=== PATIENT | female | born 1960 | race Caucasian/White ===

== ENCOUNTER 2018-02-15 11:01 | Observation (INO) | payer OTHER ==
[2018-02-15] MEDS ORDERED: Diazepam TAB(*) 5 MG PO ONE (11:35)
[2018-02-15] MEDS ORDERED: NS 0.9% 1000 ML* 1,000 ML IV SCH ×2 (11:45→13:30)
[2018-02-15] MEDS ORDERED: Diazepam TAB(*) 5 MG ONE (11:49)
[2018-02-15] MEDS ORDERED: Insulin LISPRO* 1 UNITS UNIT SUBCUT ONE ×2 (12:00→21:34)
[2018-02-15] MEDS ORDERED: Iodixanol* (CONTRAST) 320 MG/ML 100 ML SDV ONE (12:06)
[2018-02-15] MEDS ORDERED: Lidocaine 1% INJ* 10 MG/ML 30 ML SDV ONE (12:06)
[2018-02-15] MEDS ORDERED: Heparin 2 UNITS/ML IVPREMIX* 2,000 ML IV ONE (12:06)
[2018-02-15] MEDS ORDERED: fentaNYL* 50 MCG/ML 2 ML VIAL (100 MCG VIAL) ONE (12:08)
[2018-02-15] MEDS ORDERED: Heparin(*) 1000 UNIT/ML 10 ML VIAL CATH LAB IV ONE (12:09)
[2018-02-15] MEDS ORDERED: VERAPAMIL 2.5 MG/ML 2 ML VIAL ** 5 mg/2 ml ONE (12:09)
[2018-02-15] MEDS ORDERED: nitroGLYCERIN DRIP* 25,000 MCG/250 ML BTL ONE ×2 (12:09→13:32)
[2018-02-15] MEDS ORDERED: Midazolam* 1 MG/ML 10 ML VIAL (10 MG) ONE (12:10)
[2018-02-15] MEDS ORDERED: nitroGLYCERIN DRIP* 25,000 MCG/250 ML BTL IV ONE (15:00)
--- NOTE | 2018-02-15 15:02 | CATH ---
CC: Dr. Moe Bass; Kay Ellis MD* CARDIAC CATHETERIZATION REPORT: DATE OF PROCEDURE: 02/15/18. INDICATION FOR THE PROCEDURE: Patient with the known history of coronary artery disease, status post stenting of both the right coronary artery for a prior inferior WV and stenting the circumflex artery for critical stenosis, now with severe stage 4 angina pectoris including discomfort at rest with a high risk stress test with angina starting at a very low work load. The procedure was coronary arteriography, left heart catheterization, left ventriculography. APPROACH: Right radial artery. PRECARDIAC CATHETERIZATION LABORATORY RESULTS: Hemoglobin, hematocrit of 15.2 and 44 with a platelet count of 221,000. Glucose of 471. BUN of 22, creatinine of 1. Sodium 137, potassium 3.9, chloride 102, bicarb 27, calcium 95. MEDICATIONS GIVEN IN THE PERIPROCEDURE TIME PERIOD: 1. Valium 2.5 mg orally. 2. Versed 0.5 mg IV. EQUIPMENT UTILIZED: 1. Right radial artery sheath: 6-Anguillan Glidesheath. 2. Diagnostic coronary catheter: 5-Anguillan TIG 4 curve radial catheter. 3. Diagnostic guidewires: Included a 260 length Da Silva exchange length wire and a 145 length Wholey wire. 4. Left heart catheterization catheter: 5-Anguillan pigtail Performa radial. PROCEDURE: The patient was interviewed and examined in the holding area where the risks and benefits were explained. The right radial artery was assessed under ultrasound and found to be acceptable for an approach. She was brought into the cardiovascular laboratory and a formal time-out was performed. The patient was prepped and draped in sterile fashion and right radial artery area was anesthetized with 1% lidocaine and under ultrasound guidance, the right radial artery was entered and the Glidesheath was placed. Diagnostic coronary arteriography was performed followed by left heart catheterization and left ventriculography utilizing a total of 24 cc of Visipaque dye at a rate of 12 cc/ sec. The catheter was then pulled back across the aortic valve to recheck gradient. At the end of the case, the catheter and sheath was removed and hemostasis was obtained with a Vasc Band. The reverse Barbeau was found to be B with the Vasc Band in place. Total contrast used was 85 cc of Visipaque dye. Radiation exposure included 6.9 minutes of fluoro time. The air kerma radiation was 889 milligray. The DAP radiation was 5127 microgray/m2. RESULTS: HEMODYNAMIC DATA: Left heart catheterization - Central aortic pressure recorded at 153/82 with a mean of 114. Left ventricular pressure 160 over left ventricular end- diastolic pressure of 18. LEFT VENTRICULOGRAPHY: Performed in the ZHANG projection revealed moderate proximal to mid inferior wall hypokinesis with preservation of the anterior, apical, and distal inferior wall. Overall, EF estimated at 45% to 50%. There was no significant mitral regurgitation. CORONARY ARTERIOGRAPHY: A. Left coronary artery: 1. Left main - widely patent with no significant lesion. 2. Left anterior descending artery - the proximal portion of the left anterior descending artery had an abrupt caliber change of 50% to 55%. This continued throughout this segment and then became more significant after the first septal travel pt. In its worse view, the mid segment area appeared to have a 70% to 75% lesion. The first diagonal branch did not have any significant obstruction seen, but its takeoff was within the area that appeared to have the caliber change of 50%. 3. Circumflex artery - supplied a trifurcating marginal branch with no significant disease. Continuation of the circumflex supplied 1 bifurcating obtuse marginal branch which in its proximal portion appeared to have a 55% to 60% obstruction followed by the stented area and just at the end of the stent and just beyond it was a critical 95% lesion with JOY 3 flow noted. B. Right coronary artery - a dominant vessel supplying the PDA and multiple posterior left ventricular branches. The prior stented area involved the proximal to mid area. There was significant in-stent restenosis with a narrowing of as much as 80% seen in this segment. JOY 3 flow was noted within this vessel. The mid portion of the right coronary artery had mild 35% to 40% narrowing and after the artery turned on to the inferior surface of the heart was another narrowing of approximately 35% to 40% before the posterior descending artery. OVERALL ASSESSMENT: Evidence of significant triple vessel disease with most severely involving the obtuse marginal branch with evidence of in-stent restenosis to prior drug- eluting stents. Overall left ventricular function is only mildly reduced. All of these vessels appeared to be bypassable. These results were discussed with Dr. Bass who will be discussing the possibility of open heart surgery for this patient given triple vessel disease with a insulin-dependent patient with poor control in general of her risk factors with a question of nonadherence to drug therapy. Further discussions will be made with the patient with Dr. Bass. [id number]/[facility] #: [id number] [facility]
--- NOTE | 2018-02-15 15:59 | CONSULT ---
Subjective Date of Service: 02/15/18 Interval History: Admission date and consult date 02/15/2018 PMD: Dr. Kay Ellis Service: Hospitalist CC: Chest pain Reason for consult: Unstable angina HPI Alma Rosa Miller is a 58 year old woman I had met for the first time 2 days ago. She has had progressive anginal symptoms of chest khan radiating to left arm including multiple episodes at rest over the last 4-6 weeks relieved with SL NTG. She had a markedly abnormal stress EKG this AM with 8/10 angina at 30 seconds beginning of keely protocol. She had an angiogram with Dr. Felix earlier today showing 3VD including OM lesion, pRCA ISR of a dominant vessel and an obstructive mLAD lesion. Her LVEF was 45-50% by LV gram with inferior WMA from a prior HI. She is currently pain free on a nitroglycerine gtt. Both Dr. Felix and myself agreed she would be better served with bypass for revascularization. She was declined by both cardiac surgeon and mechanical spreader operator for transfer to her preferred place of preference for CABG at [facility] because her daughter lives [address] Bradley has accepted her at [facility] for CABG. She unfortunately was unable to tolerate lipitor again because of GI upset. Her quit date for smoking was tomorrow. Her most recent hgba1c is 12. I am not sure if her diabetes is type1, 2 or an overlap. She tells me Dr. Jenkins is trying to get an insulin pump approved. Here with significant other and son. Current meds prior to visit: Ramipril 5 mg 1 by mouth every day Clopidogrel Bisulfate 75 mg 4 tablets first day then 1 by mouth every day Daisy Crutches One Set Degen Lumbar disease Freestyle Lite Test Strips two times daily or as needed Freestyle Lite Lancets two times daily or as needed Freestyle Lite Blood Glucose Monitoring System check fingerstick daily Fluticasone Propionate 50 mcg/Act use one spray into each nostril every morning as directed Proair HFA 108 (90 Base) mcg/Act 2 puffs ih q4h prn Contour Blood Glucose Monitoring System w/Device as directed Doxepin HCL 25 mg 1 at bedtime Epipen 2-Venkatesh 0.3 mg/0.3ml 0.3 mg im in thigh prn beesting Back Brace With Lumbar Support use as directed Humidifier use as directed dx 496 Contour Test Strips tid and prn Contour Lancets 1 finger stick tid and prn Fexofenadine HCL 180 mg 1 by mouth every day Synthroid 175 mcg 1 by mouth every day Albuterol Sulfate (2.5 mg/3ml) 0.083% 1 vial via nebulizer 4 times daily as needed Humalog Kwikpen 100 Unit/ML 20 am, 20 midday, 20 at night Ipratropium [place] 0.03 % instill 2 sprays in each nostril twice a day Oxycodone HCL 10 mg 1 by mouth every 6 hours as needed pain Viibryd 40 mg take 1 tab every in the morning Aspirin 81 mg 1 by mouth every day Nitrostat 0.4 mg one sl q5min up to 3 doses as needed Basaglar Kwikpen 100 Unit/ML 65 units at bedtime Pantoprazole Sodium 40 mg 1 by mouth every day Jardiance 25 mg 1/2 by mouth every day ( taking 1 tablet po daily ) imdur 30 mg medication list reconciled verbally, bottles and reviewed on 02/13/18, Audrey Thibodeaux [facility] Allergies: Penicillins 07/27/08 Ibuprofen 07/27/08 - upset stomach steroids 09/27/11 Fentanyl 08/08/13 allergy list reviewed on 02/13/2018 PMH: Hypothyroidism Diabetes Bipolar Disorder Depression Anxiety Insomnia Hypertension Gastroesophageal Reflux Disease (GERD) Back Pain Edema Hyperlipidemia Chronic Obstructive Pulmonary Chronic Pain Syndrome HI/CAD Surgical Hx: Hysterectomy - (01/2011) Gallbladder, Tubal Ligation, Cholecystectomy FH: Diabetes, Non Insulin Dependent - father Hypertension - father Hypercholesterolemia - father Congestive Heart Failure (CHF) - father. Father: Congestive Heart Failure (CHF) - (age 42 Years) 72 yo. Siblings:3 - 2 bipolar, 1 diabetic. No CAD. 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 Personal Habits: Smoking: Patient is a current smoker, smokes every day, Heavy tobacco smoker (more than 10 cigarettes/day).Cigarette Use: current cigarette smoker - 1/4 pack daily.Alcohol: Denies alcohol use.Drug Use: Denies Drug Use.Daily Caffeine: Consumes on average 1 cup of regular coffee per day, Consumes on average 32oz of iced tea per day.Exercise Type: Does not exercise. Medications Active Medications: Sodium Chloride (Ns 0.9% 1000 Ml*) 1,000 mls @ 125 mls/hr IV .per rate ANNETTE Stop: 02/15/18 17:29 Last Admin: 02/15/18 13:05 Dose: 125 mls/hr Home Medications: Review of Systems - Review of Systems Constitutional Symptoms: Negative: Weight Gain, Weight Loss, Weakness Dermatology: Negative: Rash, Skin Lesions HEENT: Negative: Change in Hearing, Vertigo Eyes: Negative: Change in Vision, Double Vision Thyroid: Negative: Cold Intolerance, Heat Intolerance, Weight Loss, Weight Gain Pulmonary: Negative: Cough, Respiratory Distress Cardiology: Positive: Chest Pain Negative: Shortness of Breath, Palpitations, Swelling of Ankles, Peripheral Vascular Dis, Edema, Faintness, Syncope, Claudication, Paroxysmal Nocturnal Dyspnea, Orthopnea Gastroenterology: Positive: Nausea Negative: Vomiting, Anorexia, Constipation, Diarrhea, Haematemesis, Melena Genital - Urinary: Negative: Dysuria, Hematuria Musculoskeletal: Negative: Joint Pain, Joint Stiffness Endocrinology: Positive: Diabetes, Hyperglycemia Negative: Polydipsia, Polyuria Hematologic/Lymphatic: Positive: Use of Antiplatelet Drugs Negative: Hx Leukemia, Hx Lymphoma, Use of Anticoagulant Neurology: Negative: Diplopia, Dizziness, Hx of Stroke\TIA, Hx Seizures Psychiatry: Negative: Unusual Anxiety, Suicidal Ideation Allergic/Immunologic: Negative: Hx HIV, Immunocompromise Review of Systems Statement: All other review of systems negative, unless stated above. Objective Vital Signs: Temp Pulse Resp BP Pulse Ox 86 18 118/72 92 02/15/18 14:38 02/15/18 14:38 02/15/18 14:38 02/15/18 14:38 Appearance: nad, pleasant Ears/Nose/Mouth/Throat: NL Teeth, Lips, Gums Neck: NL Appearance and Movements; NL JVP, Trachea Midline Respiratory: Symmetrical Chest Expansion and Respiratory Effort, Clear to Auscultation Cardiovascular: NL Sounds; No Murmurs; No JVD, RRR, No Edema Abdominal: NL Sounds; No Tenderness; No Distention Extremities: No Edema Skin: No Rash or Ulcers Neurological: Alert and Oriented x 3 Laboratory Results: 02/15/2018 wbc 11.2, hgb 15.2, plts 221 na 137, k 3.9, cr 1.07 Diagnostic Imaging: Cardiac Testing: Stress Test - (10/14/2015) No definite fixed or reversible perfusion defect with normal ejection fraction. The TID is borderline elevated at 1.22. Echocardiogram - (03/31/2015) Visual EF is 50-55%. Normal diastolic filling pattern. Normal RV function. Minimal aortic valve leaflet thickening with normal excursion. All valves show normal function, trace insufficiency of the tricuspid and pulmonic valve. No prior echo to compare. Carotid Doppler - (04/05/2015) Mild bilateral stenosis PVR Study - (03/22/2010) No significant lower extremity arterial disease found. Cardiac Procedures: Cardiac Catheterization - (05/22/2016) Lcx acute HI in setting of anti-platelet non-adherence, obstructive OM PCI TYLOR and RCA at that time had intermediate in stent restenosis. Cardiac Catheterization - (10/20/2015) Inferior wall STEMI s/p TYLOR to RCA, residual intermediate LAD lesion, LVEF 60% with inferior wall hypokinesis ekg 02/13/2018: NSR, normal ekg Assessment/Plan 1. Unstable angina with prior HI, 3VCAD and LVEF 45-50%, currently pain free 2. Uncontrolled diabetes, uncertain type 3. Tobacco use, quit date tomorrow 4. Dyslipidemia, unable to tolerate atorvastatin 5. HTN 6. Hypothyroidism 7. COPD - Continue current cardiac medications except hold plavix in anticipation of cabg (last dose this AM), add metoprolol 25 mg po tid and change indur to topical or IV as allowed by per unit. Add crestor 10 mg hopefully tolerates will uptitrate in the future as needed - Plan to admit to telemetry overnight hospitalist service and transfer to [facility] tomorrow AM for pre-op evaluation prior to CABG next week Thank you for allowing me to participate in the cardiovascular care of this patient. Please do not hesitate to contact me with questions or concerns.
[2018-02-15] MEDS ORDERED: Nitroglycerin 2% OINT* 1 GM PAK ONE (16:02)
[2018-02-15] MEDS ORDERED: Nitroglycerin 2% OINT* 1 GM PAK TOPICAL SCH ×2 (16:30→17:00)
[2018-02-15] MEDS ORDERED: Nitroglycerin TAB 0.4 MG* 0.4 MG TAB SL PRN (16:39)
[2018-02-15] MEDS ORDERED: Albuterol HFA INHALER* 8 gm MDI INH PRN (16:41)
[2018-02-15] MEDS ORDERED: oxyCODONE TAB* 5 MG TAB PO PRN (16:41)
[2018-02-15] MEDS ORDERED: Omeprazole CAP* 20 MG PO PRN (16:41)
[2018-02-15] MEDS ORDERED: Albuterol 2.5 MG/3 ML NEB.SOL* (0.083%) INH PRN (16:41)
[2018-02-15] MEDS ORDERED: Dextrose 50% Syringe 50 ML* 25 GM/50 ML SYRINGE IV PUSH PRN ×2 (16:55→21:34)
[2018-02-15] MEDS ORDERED: Metoprolol Tartrate TAB* 25 MG PO SCH (17:00)
[2018-02-15] MEDS ORDERED: Insulin GLARGINE(*) 1 UNITS UNIT SUBCUT SCH (17:00)
[2018-02-15] MEDS: CMCS: Rosuvastatin (NF) 10 MG TAB PO SCH ×2 (20:00→20:21)
[2018-02-15] MEDS: Metoprolol Tartrate TAB* 25 MG PO SCH ×2 (20:21→22:00)
[2018-02-15] MEDS ORDERED: Insulin LISPRO* 1 UNITS UNIT SUBCUT SCH (21:00)
[2018-02-15] MEDS ORDERED: IPRATROPIUM 0.03% BOTH NARES SCH (21:00)
[2018-02-15] MEDS ORDERED: Doxepin Hcl [Doxepin Hcl] 10 MG PO SCH (21:00)
[2018-02-15] MEDS ORDERED: Insulin GLARGINE(*) 1 UNITS UNIT SUBCUT ONE (21:34)
--- NOTE | 2018-02-15 22:10 | HP ---
AMENDED REPORT NOW INCLUDES COSIGNER DESIGNATION - ESIGNED BEFORE ADJUSTMENT CC: Dr. Kay Ellis; Dr. Bass * HISTORY AND PHYSICAL/TRANSFER SUMMARY: DATE OF ADMISSION: 02/15/18 PROVIDER: Luzma Call NP PRIMARY CARE PROVIDER: Dr. Kay Ellis. ATTENDING PHYSICIAN WHILE IN THE HOSPITAL: Dr. Ashley Lora * (dictated by Luzma Call NP). CHIEF COMPLAINT: Chest pain. HISTORY OF PRESENT ILLNESS: Alma Rosa Miller is a 58-year-old woman, who presented to [facility] for a cardiac stress test today. The patient has progressive anginal symptoms of chest pain with rest and with exertion over the past 4 to 6 weeks. She reports that she was seen and treated at [facility] where she had a chest x-ray and was sent home. She presented to [facility] today for a stress test, which she failed and then had a cardiac catheterization, which showed a 3-vessel disease. It was agreed by Dr. Felix and Dr. Bass that the patient would best benefit from cardiac bypass surgery for revascularization. Dr. Bass has set up transfer with Dr. Bradley at [facility] for CABG. She will be transferred during the plating engineer to [facility]. The patient reports that she currently still smokes approximately 5 cigarettes a day. Her quit date to stop smoking is tomorrow. Her most recent hemoglobin A1c is 12, for which she is seeing Dr. Jenkins for management of her diabetes. Given her failed stress test and cardiac catheterizations showing 3-vessel disease, we were asked by Dr. Felix and Dr. Bass to see and evaluate her for admission. PAST MEDICAL HISTORY: Significant for: 1. Hypothyroidism. 2. Diabetes. 3. Bipolar disorder. 4. Depression. 5. Anxiety. 6. Insomnia. 7. Hypertension. 8. Gastroesophageal reflux disease. 9. Back pain. 10. Edema. 11. Hyperlipidemia. 12. COPD. 13. MT with coronary artery disease. PAST SURGICAL HISTORY: Significant for: 1. Stenting in October of 2015. 2. Cardiac stenting in April of 2016. 3. Cholecystectomy. 4. Hysterectomy. 5. Tubal ligation. HOME MEDICATIONS: Include: 1. Lantus 65 units subcu q.p.m. 2. Lispro 20 units a.m., evening, and at h.s. 3. Imdur 30 mg p.o. daily. 4. Plavix 75 mg p.o. daily. 5. Aspirin 81 mg p.o. daily. 6. Albuterol 2.5 mg inhaled q.4 hours as needed. 7. Nebulizer albuterol HFA inhaler 2 puffs q.4 hours as needed for shortness of breath. 8. Atorvastatin 80 mg p.o. b.i.d. 9. Doxepin HCl 10 mg p.o. at bedtime. 10. Sertraline 10 mg p.o. daily. 11. Fenofibric acid 135 mg p.o. daily. 12. Jardiance 25 mg p.o. daily. 13. EpiPen as needed. 14. Isosorbide mononitrate ER tablet 30 mg p.o. daily. 15. Ipratropium bromide 2 sprays both nares b.i.d. 16. Nitroglycerin 0.4 mg sublingual q.5 minutes as needed for chest pain. 17. Levothyroxine 175 mcg p.o. daily. 18. Viibryd 40 mg p.o. daily. 19. Ramipril 5 mg p.o. daily. 20. Pantoprazole 40 mg p.o. daily. 21. Oxycodone 10 mg p.o. q.6 hours as needed for pain. ALLERGIES TO MEDICATIONS: She has an allergy to CORTICOSTEROIDS, causes rash; FENTANYL, difficulty breathing; PENICILLIN G, difficulty breathing. FAMILY HISTORY: Father with a history of congestive heart failure. Father with a history of diabetes. Grandparents, maternal and paternal with history of ovarian, breast, and cervical cancer. SOCIAL HISTORY: The patient currently smokes 5 cigarettes a day. She reports that she has been a smoker of up to 2 packs a day since the age of 18. Her quit date for smoking is tomorrow. Alcohol, denies any alcohol or illicit drug use. She is unemployed. She is . Surrogate decision maker in the event she is unable to make her own decisions is Yamileth. Her phone number is [phone]. She is a full code. REVIEW OF SYSTEMS: There was no documented fever. There has been no significant weight change. There was no double vision. No ear discharge. No rhinorrhea. She denies any recent illnesses or sick contacts. She denies any sore throat. She does report intermittent chest pain, but currently is chest pain free. She denies any orthopnea or nocturnal dyspnea. There was no abdominal pain. She does report some nausea and vomiting because of her medication. She does report a nonproductive cough. She denies any shortness of breath. She denies any gross hematuria or dysuria. Denies any focal weakness or sensory loss. She denies any visual complaints. She denies any dysphagia. Denies any arthralgias or myalgias. Denies any rashes or lesions. Denies any psychosis or anxiety. A review of 14 systems was completed and all others were negative. PHYSICAL EXAMINATION GENERAL: At this time, Ms. Miller is a 58-year-old female. She appears comfortable resting on the stretcher in the dairy lab technician holding area. She does not appear to be in any acute distress. VITAL SIGNS: Are as follows: Blood pressure 128/84, respirations were 20, pulse is 111, O2 saturation is 94%. HEENT: Head is atraumatic, normocephalic. Eyes: EOMs are intact. Sclerae anicteric and not pale. Oral mucosa appear to be moist. NECK: Supple. LUNGS: Clear to auscultation bilaterally with some scattered expiratory wheezing. No rales or rhonchi. CARDIAC: S1, S2. It is regular rate and rhythm. There are no murmurs, rubs, or gallops. ABDOMEN: Soft and nontender. Bowel sounds are present x4. EXTREMITIES: Pulses are +2 throughout. She is able to move all 4 extremities with 5/5 strength. NEUROLOGIC: She is awake, alert, and oriented x4. Her speech is clear. There are gross no focal deficits. SKIN: Intact. She has a dressing to her right wrist from cardiac catheterization site. DIAGNOSTIC STUDIES AND LABORATORY DATA: On 02/15/18, WBCs were 11.2, RBCs 5.17 , hemoglobin was 15.2, hematocrit was 44, platelet count was 221. INR was 0.86. Sodium 137, potassium 3.9, chloride 102, carbon dioxide was 27, anion gap was 8, BUN was 22, creatinine 1.07, glucose was 471. She had a cardiac catheterization and a stress test. Please refer to the reports. ASSESSMENT AND PLAN: Ms. Miller is a 58-year-old female who presented to [facility] today for outpatient stress test, which she failed and then proceeded to have a cardiac catheterization, which showed significant 3- vessel disease. It was deemed that she would need to be transferred to a higher level of care facility for cardiac bypass surgery. She will be admitted under observation for: 1. Chest pain. At this time, Ms. Miller has 3-vessel disease that is requiring cardiac bypass surgery for revascularization. She had a cardiac catheterization that showed 3-vessel disease after having a failed stress test. Transfer has been set up by Dr. Bass to Dr. Bradley at [facility]. She will be transferred in the plating engineer to [facility] for further management of her cardiac needs. We will place her on telemetry this evening, monitor her overnight. She will have nitro paste to the chest 1 inch. We will continue her metoprolol 25 mg p.o. b.i.d. She can have nitroglycerin 0.4 mg sublingual q.5 minutes as needed for chest pain. We will hold her Plavix as she has pending cardiac bypass surgery. We will give her Crestor 10 mg p.o. daily. The patient will be transferred to [facility] in the plating engineer. 2. Hyperlipidemia. She will be started on Crestor 10 mg p.o. daily. 3. Depression. She will continue on her doxepin 10 mg p.o. daily at bedtime. 4. Gastroesophageal reflux disease. She will continue on pantoprazole 40 mg p.o. daily. 5. Chronic obstructive pulmonary disease. She can have albuterol nebulizer/ inhaler as needed for shortness of breath. 6. Diabetes. I will place her on fingersticks a.c. and h.s. with lispro sliding scale. I will decrease her Lantus to 30 units subcu p.m. this evening as she will be n.p.o. for transfer. 7. DVT prophylaxis. I will place her on heparin subcu. I will give her one dose this evening and hold dosing after midnight. 8. Code status. She is a full code. 9. Fluids, electrolytes, and nutrition. She can have heart-healthy diet. The patient will be transferred to [facility]. Dr. Bass from Cardiology has discussed the case with Dr. Bradley, who has accepted the patient at [facility]. She will be transferred at 3:30 in the morning. Transfer paperwork has been completed. TIME SPENT: Time spent on this admission was approximately 60 minutes, greater than half that time was spent [id number] with the patient obtaining my history and physical, the other half the time was spent going over my plan of care and implementing my plan of care. I have discussed this plan with my attending, Dr. Ashley Lora, and she is in agreement with my plan. LUZMA CALL, SHREYA [id number]/[facility] #: [id number] ANI
[2018-02-16] MEDS ORDERED: Nitro OINT Remove TOPICAL SCH (04:00)
[2018-02-16 05:18] VITALS: BP 130/56
[2018-02-16] MEDS ORDERED: Levothyroxine TAB* 175 MCG TAB PO SCH (06:00)
[2018-02-16] MEDS ORDERED: Aspirin EC TAB* 81 MG TAB.EC PO SCH (09:00)
[2018-02-16] MEDS ORDERED: FENOFIBRIC ACID 135 MG PO SCH (09:00)
[2018-02-16] MEDS ORDERED: Ramipril CAP* 5 MG PO SCH (09:00)
[2018-02-16] MEDS ORDERED: Vilazodone (NF) 40 MG TAB PO SCH (09:00)
[2018-02-16] MEDS ORDERED: Nitroglycerin 2% OINT* 1 GM PAK TOPICAL SCH (16:00)
== END 2018-02-16 07:45 | disposition short-term general hospital (02) ==
LOC: CHICATH 11:01 → MEDTELE 16:05
PROVIDERS: ADMIT Internal Medicine Cardiovascular Disease; ATTEND Internal Medicine
DX: R07.9 Chest pain, unspecified (principal); I25.2 Old myocardial infarction; E03.9 Hypothyroidism, unspecified; E11.9 Type 2 diabetes mellitus without complications; F31.9 Bipolar disorder, unspecified; F41.9 Anxiety disorder, unspecified; G47.00 Insomnia, unspecified; I20.0 Unstable angina; I10 Essential (primary) hypertension; K21.9 Gastro-esophageal reflux disease without esophagitis; J44.9 Chronic obstructive pulmonary disease, unspecified; E78.5 Hyperlipidemia, unspecified; Z79.899 Other long term (current) drug therapy; Z79.01 Long term (current) use of anticoagulants; Z79.02 Long term (current) use of antithrombotics/antiplatelets; Z88.0 Allergy status to penicillin; Z88.8 Allergy status to other drugs, medicaments and biological substances; F17.210 Nicotine dependence, cigarettes, uncomplicated; Z79.84 Long term (current) use of oral hypoglycemic drugs; Z82.49 Family history of ischemic heart disease and other diseases of the circulatory system
CPT/HCPCS: 36415; 76937; 82947; 86703; 93458; 99156; 99157; A9270-GY; G0378; J1644; J2250; J3010

== ENCOUNTER 2018-05-21 01:53 | Emergency (ER) | payer OTHER ==
[2018-05-21] MEDS ORDERED: Nicotine Inhaler* 10 MG AMP INH PRN (02:01)
[2018-05-21 02:45] LABS: ABS Basophils 0.1 10^3/ul (0-0.2); ABS Eosinophils 0.1 10^3/ul (0-0.6); ABS Lymphocytes 2.7 10^3/ul (1.0-4.8); ABS Monocytes 0.5 10^3/ul (0-0.8); ABS Neutrophils 5.4 10^3/ul (1.5-7.7); ABS Nucleated RBC 0 10^3/ul; Eosinophil % 1.5 %; Hematocrit 45 % (35-47); Hemoglobin 14.9 g/dl (12.0-16.0); Lymphocyte % 30.7 %; Mean Corpuscular HGB Conc 33 g/dl (31-36); Mean Corpuscular Hemoglobin 28 pg (27-31); Mean Corpuscular Volume 85 fL (80-97); Mean Platelet Volume 8.3 fL (7.4-10.4); Nucleated Red Blood Cells % 0; Platelet Count 271 10^3/ul (150-450); Red Blood Count 5.27 10^6/ul (4.00-5.40); Red Cell Distribution Width 15 % (10.5-15); White Blood Count 8.9 10^3/ul (3.5-10.8)
--- NOTE | 2018-05-21 02:45 | ED ---
Substance Abuse/Use - HPI Summary HPI Summary: This patient is a 58 year old F brought in by EMS as well as police. The patient is refusing to cooperative or answer questions. She is only screaming take these cuffs off me. EMS and police report the daughter called them because the pt has been having CP for the las t 4 days with hx of a recent cardiac surgery. Along with this the daughter reported that the pt has not been taking her medications. Upon arrival they state there were many empty bottles of alcohol in the apartment and the pt was being aggressive and violent. Level 5 Caveat: exam is limited as the patient is refusing to cooperate at this time. - History Of Current Complaint Chief Complaint: EDOverdose Stated Complaint: 2208 Time Seen by Provider: 05/21/18 01:58 Hx Obtained From: EMS, Other: - police Ingestion History: Type/Name Of Drug - etoh Overdose Characteristics: Oral Timing Of Abuse: Binge Use Severity Initially: Moderate Severity Currently: Moderate Character: Angry Associated Signs And Symptoms: Other: - CP - Allergies/Home Medications Allergies/Adverse Reactions: Allergies Allergy/AdvReac Type Severity Reaction Status Date / Time Corticosteroids Allergy Rash Verified 02/15/18 11:46 (Glucocorticoids) fentanyl Allergy Difficulty Verified 02/15/18 11:46 Breathing penicillin G Allergy Difficulty Verified 02/15/18 11:46 Breathing PMH/Surg Hx/FS Hx/Imm Hx Endocrine/Hematology History: Reports: Hx Diabetes, Hx Thyroid Disease Cardiovascular History: Reports: Hx Angina, Hx Coronary Artery Disease, Hx Hypercholesterolemia, Hx Hypertension, Hx Myocardial Infarction, Other Cardiovascular Problems/Disorders - PERICARDITIS Denies: Hx Angioplasty, Hx Congestive Heart Failure, Hx Pacemaker/ICD, Hx Peripheral Vascular Disease, Hx Valvular Heart Disease Respiratory History: Reports: Hx Asthma, Hx Chronic Obstructive Pulmonary Disease (COPD), Hx Seasonal Allergies - cut grass, mold, fungus, Other Respiratory Problems/Disorders - smoker Denies: Hx Sleep Apnea GI History: Reports: Hx Gall Bladder Disease - Removed 1999, Hx Gastroesophageal Reflux Disease Denies: Hx Ulcer History: Reports: Hx Kidney Stones Denies: Hx Renal Disease Musculoskeletal History: Reports: Hx Back Problems, Hx Scoliosis Sensory History: Reports: Hx Contacts or Glasses, Hx Deafness, Hx Hearing Aid, Hx Hearing Problem Denies: Hx Cataracts, Other Sensory Impairments Opthamlomology History: Reports: Hx Contacts or Glasses Denies: Hx Cataracts, Other Sensory Impairments Neurological History: Reports: Hx Migraine Denies: Hx Seizures, Hx Transient Ischemic Attacks (TIA) Psychiatric History: Reports: Hx Anxiety, Hx Depression, Hx Panic Disorder, Hx Bipolar Disorder - Surgical History Surgery Procedure, Year, and Place: 2010 Total Hysterectomy. 1999 Gall bladder removed. 2000 Tubal. A CHILD EAR SURGERY X 3 NO IMPLANTS. 10/20/15 -3 [place] [place]1.5 [place] 3T UP TO 2300G/CM Infectious Disease History: No Infectious Disease History: Reports: Hx Shingles - age 11 years Denies: Hx Hepatitis, Hx Human Immunodeficiency Virus (HIV), Hx Tuberculosis , Traveled Outside the [place] in Last 30 Days - Family History Known Family History: Positive: Unknown, Cardiac Disease, Hypertension, Diabetes - Social History Alcohol Use: None Hx Substance Use: No Substance Use Type: Reports: None Hx Tobacco Use: Yes Smoking Status (MU): Current Every Day Smoker Type: Cigarettes Amount Used/How Often: 5 per day Have You Smoked in the Last Year: Yes Review of Systems - ROS Summary Review of Systems Summary: Level 5 Caveat: exam is limited as the patient is refusing to cooperate at this time. Constitutional: Other - ETOH abuse Positive: Chest Pain All Other Systems Reviewed And Are Negative: No Physical Exam - Summary Physical Exam Summary: VITAL SIGNS: Reviewed. GENERAL: Patient is a well-developed and nourished female who is agitated. She is not answering questions and she is tearful. HEAD AND FACE: No signs of trauma. No ecchymosis, hematomas or skull depressions. No sinus tenderness. EYES: PERRLA, EOMI x 2, No injected conjunctiva, no nystagmus. EARS: Hearing grossly intact. Ear canals and tympanic membranes are within normal limits. MOUTH: Oropharynx within normal limits. NECK: Supple, trachea is midline, no adenopathy, no JVD, no carotid bruit, no c- spine tenderness, neck with full ROM. CHEST: Symmetric, no tenderness at palpation LUNGS: Clear to auscultation bilaterally. No wheezing or crackles. CVS: Regular rate and rhythm, S1 and S2 present, no murmurs or gallops appreciated. ABDOMEN: Soft, non-tender. No signs of distention. No rebound no guarding, and no masses palpated. Bowel sounds are normal. EXTREMITIES: FROM in all major joints, no edema, no cyanosis or clubbing. NEURO: Alert and oriented x 3. No acute neurological deficits. Speech is slurred SKIN: sternotomy scar Triage Information Reviewed: Yes Vital Signs On Initial Exam: Initial Vitals Temp Pulse Resp BP Pulse Ox 98.6 F 116 22 108/64 97 05/21/18 02:05 05/21/18 02:05 05/21/18 02:05 05/21/18 02:05 05/21/18 02:05 Vital Signs Reviewed: Yes Diagnostics - Vital Signs Vital Signs Temp Pulse Resp BP Pulse Ox 05/21/18 02:05 98.6 F 116 22 108/64 97 - Laboratory Result Diagrams: 05/21/18 02:31 05/21/18 02:30 Lab Statement: Any lab studies that have been ordered have been reviewed, and results considered in the medical decision making process. - Radiology CXR Radiology Interpretation Completed By: ED Physician Summary of Radiographic Findings: no acute process. Pending official report - EKG 0243 Cardiac Rate: Tachycardia EKG Rhythm: Sinus Tachycardia - at 107 BPM Summary of EKG Findings: Normal axis. Normal interval. No ischemic changes Re-Evaluation - Re-Evaluation First Eval Re-Evaluation Time: 05:52 Change: Unchanged Comment: The patient is sleeping comfortably. Course/Dx - Course Assessment/Plan: This patient is a 58 year old F brought in by EMS as well as police. The patient is refusing to cooperative or answer questions. She is only screaming take these cuffs off me. EMS and police report the daughter called them because the pt has been having CP for the las t 4 days with hx of a recent cardiac surgery. Along with this the daughter reported that the pt has not been taking her medications. Upon arrival they state there were many empty bottles of alcohol in the apartment and the pt was being aggressive and violent. Level 5 Caveat: exam is limited as the patient is refusing to cooperate at this time. An EKG reveals Normal axis. Normal interval. No ischemic changes. CXR reveals , no acute process. Pending official report. This patient will be signed out to Dr. Hernández awaiting sobriety and any needed workup . - Diagnoses Provider Diagnoses: Alcohol intoxication Discharge - Sign-Out/Discharge Documenting (check all that apply): Sign-Out Patient Signing out patient TO: Coleman Hernández - Discharge Plan Condition: Fair Referrals: Kay Ellis MD [Primary Care Provider] - - Attestation Statements Document Initiated by Scribe: Yes Documenting Scribe: Adalid Borrero Provider For Whom Scribe is Documenting (Include Credential): Darin Moe MD Scribe Attestation: Adalid Diaz , scribed for Darin Moe MD on 05/21/18 at 0643. Status of Scribe Document: Ready
[2018-05-21 02:56] LABS: EGFR Non-African American 51.4 (>60)
[2018-05-21] MEDS ORDERED: Insulin REGULAR(*) 1 UNITS UNIT IV PUSH ONE (04:05)
[2018-05-21] MEDS ORDERED: NS 0.9% 1000 ML* 1,000 ML IV ONE ×2 (04:05→07:39)
--- NOTE | 2018-05-21 07:18 | ED ---
Progress - Progress Note Progress Note: This pt was signed out by Dr. Moe at shift change, pending disposition, awaiting sobriety and subsequent mental health evaluation. Re-Evaluation - Re-Evaluation First Eval Re-Evaluation Time: 07:38 Comment: The patient is sleeping comfortably. Pt is hypotensive and a little tachycardic. Second Eval Re-Evaluation Time: 08:30 Comment: Pt is sober and is medically cleared for mental health evaluation. Course/Dx - Course Course Of Treatment: This patient is a 58-year-old female who was signed out by Dr. Moe at shift change. He reports that the patient can with alcohol intoxication and an alcohol level of 249 at 2:30 AM. She also reports that the patient was with suicidal ideation therefore he recommended a mental health ablation after the patient becomes sober.. The patient will be medically clear at approximately 8:30 AM. The patients blood sugars 206 therefore the patient will be given 1 more liter of fluids and we will recheck the fingerstick. Patient is medically clear and now she is awaiting for mental health evaluation. Patient was ablated by Dr. Emery and he recommends for the patient to be discharged home with follow-up with PCP. Diagnosis is substance-induced mood disorder. - Diagnoses Provider Diagnoses: Alcohol-induced mood disorder Discharge - Sign-Out/Discharge Documenting (check all that apply): Patient Departure - Discharge home, Receiving Sign-Out Receiving patient FROM: Darin Moe - Discharge Plan Condition: Stable Disposition: HOME Patient Education Materials: Depression (ED), Anxiety (ED), Suicide Prevention (ED) Referrals: Kay Ellis MD [Primary Care Provider] - - Billing Disposition and Condition Condition: STABLE Disposition: Home - Attestation Statements Document Initiated by Scribe: Yes Documenting Scribe: Cristy Leo Provider For Whom Jah is Documenting (Include Credential): Coleman Hernández MD Scribe Attestation: Cristy Diaz, staciibed for Coleman Hernández MD on 05/21/18 at 1850. Scribe Documentation Reviewed: Yes Provider Attestation: The documentation as recorded by the Cristy grover accurately reflects the service I personally performed and the decisions made by me, Coleman Hernández MD Status of Scribe Document: Viewed
[2018-05-21 07:37] LABS: Urine Appearance Cloudy; Urine Blood 1+ (Negative); Urine Color Straw; Urine Ketones Negative (Negative); Urine Protein 2+(100 mg/dL) (Negative); Urine Red Blood Cell Trace(0-2/hpf) (Absent); Urine Specific Gravity 1.013 (1.010-1.030); Urine Urobilinogen Negative (Negative); Urine White Blood Cell Trace(0-5/hpf) (Absent)
[2018-05-21] MEDS ORDERED: Nitroglycerin TAB 0.4 MG* 0.4 MG TAB SL ONE (08:42)
--- NOTE | 2018-05-21 10:26 | PN ---
ED Flex Patient Progress Note Date of Service: 05/21/18 Subjective: This is a 58 year-old F who is pending admission to [facility] / transfer to another psychiatric facility / discharge to home / or being observed secondary to ETOH abuse and aggression. Pt. examined in room 20 around 0900. She is sleeping comfortably Objective: Vitals: Most recent vital signs documented below. General NAD, Alert and oriented x3. Laboratory: Current laboratory results documented below. Assessment: Pending MHE. HR remains mildly tacycardic at 105. BP stable. Plan: Pending psychiatric or medical consultation to observe / transfer / admit / discharge will follow up daily . Vital Signs Temp Pulse Resp BP Pulse Ox 98.6 F 105 16 127/74 92 05/21/18 02:05 05/21/18 08:09 05/21/18 08:09 05/21/18 08:09 05/21/18 08:09 Lab Results - Entire Visit 05/21/18 05/21/18 05/21/18 07:20 07:20 06:33 WBC RBC Hgb Hct MCV MCH MCHC RDW Plt Count MPV Neut % (Auto) Lymph % (Auto) [place] % (Auto) Eos % (Auto) Baso % (Auto) Absolute Neuts (auto) Absolute Lymphs (auto) Absolute Monos (auto) Absolute Eos (auto) Absolute Basos (auto) Absolute Nucleated RBC Nucleated RBC % Sodium Potassium Chloride Carbon Dioxide Anion Gap BUN Creatinine Est GFR ( Amer) Est GFR (Non-Af Amer) BUN/Creatinine Ratio Glucose POC Glucose (mg/dL) 202 H Calcium Total Bilirubin AST ALT Alkaline Phosphatase Troponin I Total Protein Albumin Globulin Albumin/Globulin Ratio TSH Urine Color Straw Urine Appearance Cloudy Urine pH 5.0 Ur Specific [place] 1.013 Urine Protein 2+(100 mg/dl) A Urine Ketones Negative Urine Blood 1+ A Urine Nitrate Negative Urine Bilirubin Negative Urine Urobilinogen Negative Ur Leukocyte Esterase Negative Urine WBC (Auto) Trace(0-5/hpf) Urine RBC (Auto) Trace(0-2/hpf) Urine Bacteria Absent Urine Glucose 3+(>=500 mg/dl) A Salicylates Urine Opiates Screen None detected Acetaminophen Ur Barbiturates Screen None detected Ur Phencyclidine Scrn None detected Ur Amphetamines Screen None detected U Benzodiazepines Scrn None detected Urine Cocaine Screen None detected U Cannabinoids Screen None detected Serum Alcohol 05/21/18 05/21/18 02:31 02:30 WBC 8.9 RBC 5.27 Hgb 14.9 Hct 45 MCV 85 MCH 28 MCHC 33 RDW 15 Plt Count 271 MPV 8.3 Neut % (Auto) 61.1 Lymph % (Auto) 30.7 [place] % (Auto) 5.4 Eos % (Auto) 1.5 Baso % (Auto) 1.3 Absolute Neuts (auto) 5.4 Absolute Lymphs (auto) 2.7 Absolute Monos (auto) 0.5 Absolute Eos (auto) 0.1 Absolute Basos (auto) 0.1 Absolute Nucleated RBC 0 Nucleated RBC % 0 Sodium 138 Potassium 3.9 Chloride 109 Carbon Dioxide 18 L Anion Gap 11 BUN 15 Creatinine 1.10 H Est GFR ( Amer) 62.2 Est GFR (Non-Af Amer) 51.4 BUN/Creatinine Ratio 13.6 Glucose 306 H POC Glucose (mg/dL) Calcium 8.7 Total Bilirubin 0.20 AST 26 ALT 7 Alkaline Phosphatase 124 H Troponin I 0.02 Total Protein 7.6 Albumin 4.0 Globulin 3.6 Albumin/Globulin Ratio 1.1 TSH 2.11 Urine Color Urine Appearance Urine pH Ur Specific [place] Urine Protein Urine Ketones Urine Blood Urine Nitrate Urine Bilirubin Urine Urobilinogen Ur Leukocyte Esterase Urine WBC (Auto) Urine RBC (Auto) Urine Bacteria Urine Glucose Salicylates < 2.50 Urine Opiates Screen Acetaminophen < 15 Ur Barbiturates Screen Ur Phencyclidine Scrn Ur Amphetamines Screen U Benzodiazepines Scrn Urine Cocaine Screen U Cannabinoids Screen Serum Alcohol 249 H
[2018-05-21 11:06] VITALS: BP 140/70
== END 2018-05-21 11:04 | disposition home or self-care (01) ==
LOC: ED 01:53
DX: F10.94 Alcohol use, unspecified with alcohol-induced mood disorder (principal); F10.129 Alcohol abuse with intoxication, unspecified; Y90.8 Blood alcohol level of 240 mg/100 ml or more
CPT/HCPCS: 36415; 71045; 80053; 80307; 80320; 80329; 81003; 81015; 84443; 84484; 85025; 87086; 93005; 96361; 99284; G0480

== ENCOUNTER 2018-05-23 12:18 | Emergency (ER) | payer OTHER ==
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
[2018-05-23 13:55] VITALS: BP 150/92
== END 2018-05-23 13:52 | disposition home or self-care (01) ==
LOC: ED 12:18
DX: S69.92XA Unspecified injury of left wrist, hand and finger(s), initial encounter (principal); Y04.8XXA Assault by other bodily force, initial encounter; Y92.9 Unspecified place or not applicable; Z88.5 Allergy status to narcotic agent; Z88.0 Allergy status to penicillin; Z88.8 Allergy status to other drugs, medicaments and biological substances; F17.210 Nicotine dependence, cigarettes, uncomplicated
CPT/HCPCS: 99282

== ENCOUNTER 2019-07-09 06:53 | Day surgery (SDC) | payer OTHER ==
[~2019-07-09 06:53] MED LIST: Acetaminophen TAB* 325 MG PO PRN; Buffered Lidocaine 1% SYRIN* 1 ML/SYRINGE INTRADERM ONE
[2019-07-09] MEDS ORDERED: Midazolam* 1 MG/ML 5 ML VIAL (5 MG) ONE (08:24)
[2019-07-09] MEDS ORDERED: fentaNYL* 50 MCG/ML 2 ML VIAL (100 MCG VIAL) ONE (08:24)
[2019-07-09 09:22] VITALS: BP 132/74
--- NOTE | 2019-07-09 11:36 | OP ---
DATE OF OPERATION: 07/09/2019. DATE OF : 1960. SURGEON: Lupillo Nina M.D. PREOPERATIVE DIAGNOSIS: Cataract right eye. POSTOPERATIVE DIAGNOSIS: Cataract right eye. OPERATIVE PROCEDURE: Extracapsular cataract extraction with intraocular lens implant right eye. PROCEDURE: The patient was brought to the operating room after being given 1/2% Alcaine with epineph rine drops in the preoperative area. The eye was prepped and draped in the usual sterile fashion. S terile drape and eyelid speculum were placed. Again, topical 1/2% Alcaine with epinephrine was given . A paracentesis incision was made at the 9 o'clock position with the No.75 blade. Clear cornea inc ision 2.2 x 2.2-mm was created at the 12 o'clock position starting at the anterior limbus using the 2 .2-mm keratome. The anterior chamber was irrigated with 0.4 mL of 1% non-preservative intracameral l idocaine and filled with DisCoVisc. A capsulorrhexis was completed using the cystotome and the Utrat a forceps. Hydrodissection was performed with balanced salt solution. The lens nucleus was removed w ith the Phacoemulsification handpiece without incident. Cortex was removed with the irrigation-aspir ation handpiece. The capsular bag was re-inflated using DisCoVisc and an [id number] 20.5 implant was ins erted with the shooter. The irrigation-aspiration handpiece was used to remove all residual DisCoVis c. The eye was refilled with balanced salt solution and the wound checked and found to be watertight . Topical Maxitrol drops were given. [id number]/[facility] #: [id number]
[2019-07-09] MEDS ORDERED: Neomycin/Polymy/Dex OPTH.SUSP* MAXITROL 0.1% 5 ML ONE (13:54)
[2019-07-09] MEDS ORDERED: Proparacaine 0.5% OPHTH.SOL* 15 ML BTL ONE (13:54)
[2019-07-09] MEDS ORDERED: acetaZOLAMIDE TAB* 250 MG ONE (13:54)
[2019-07-09] MEDS ORDERED: Povidone Iodine 5% OPTH* 30 ML BTL ONE (13:54)
[2019-07-09] MEDS ORDERED: Ketorolac 0.5% OPHTH (NF) 0.5 % 5 ML BTL ONE (13:54)
[2019-07-09] MEDS ORDERED: Lidocaine 2% w/ EPI 1:200,000* 20 ML SDV VIAL ONE (13:54)
[2019-07-09] MEDS ORDERED: Cyclopentolate 1% OPTH.SOL* 2 ML BTL ONE (13:54)
[2019-07-09] MEDS ORDERED: Phenylephrine OPHTH SOL 2.5%* 2 ML ONE (13:54)
[2019-07-09] MEDS ORDERED: Lidocaine 1% MPF ** 5 ML VIAL ONE (13:54)
== END 2019-08-06 10:33 | disposition home or self-care (01) ==
LOC: OREAST 06:53
PROVIDERS: ATTEND Specialist
DX: H25.811 Combined forms of age-related cataract, right eye (principal); E11.3293 Type 2 diabetes mellitus with mild nonproliferative diabetic retinopathy without macular edema, bilateral; Z79.84 Long term (current) use of oral hypoglycemic drugs; J44.9 Chronic obstructive pulmonary disease, unspecified; K21.9 Gastro-esophageal reflux disease without esophagitis; I10 Essential (primary) hypertension; F41.8 Other specified anxiety disorders; E78.00 Pure hypercholesterolemia, unspecified; F17.210 Nicotine dependence, cigarettes, uncomplicated; I25.10 Atherosclerotic heart disease of native coronary artery without angina pectoris; I25.2 Old myocardial infarction
CPT/HCPCS: A9270-GY; J2250; J3010; V2632

== ENCOUNTER 2019-07-12 11:44 | Emergency (ER) | payer OTHER ==
--- OUTSIDE RECORDS SUMMARY | 2019-07-12 11:53 | XMS REPORT | Continuity of Care Document ---
:1960 External Reference #:[id number] Author Name Lupillo Nina M.D. Address [address] [place] [address] Care Team Providers Name Role Phone Kay Ellis M.D. - Family Medicine Care Team Information Montessori Paraprofessional Madhavi Merchant M.D. - Endocrinology, Care Team Information Montessori Paraprofessional Diabetes & Metabolism Problems Active Problems Provider Date COPD - Chronic obstructive pulmonary disease Onset: Acid reflux Onset: Type 2 diabetes mellitus Onset: Essential hypertension Onset: Back pain Onset: Depression Onset: Anxiety Onset: Hypercholesterolemia Onset: Type 2 diabetes mellitus with mild Lupillo Nina M.D. Onset: 03/25/2019 nonproliferative diabetic retinopathy without macular edema, bilateral Combined form of senile cataract Lupillo Nina M.D. Onset: 03/25/2019 Social History Type Date Description Comments Sex Unknown ETOH Use Occasionally consumes alcohol Tobacco Use Start: Unknown Heavy tobacco smoker (more than 10 cigarettes/day) Recreational Drug Use Denies Drug Use Smoking Status Reviewed: 06/30/19 Heavy tobacco smoker (more than 10 cigarettes/day) Allergies, Adverse Reactions, Alerts Active Allergies Reaction Severity Comments Date Codeine 03/25/2019 Penicillin 03/25/2019 Fentanyl 03/25/2019 Medications Active Medications SIG Qnty Indications Ordering Provider Date Ciprofloxacin HCL instill one drop 5ml Lupillo Nina, 06/30/2019 0.3% in the right eye M.D. Solution three times a day, start the day before surgery Ketorolac Tromethamine use one drop in 10ml Lupillo Nina, 06/30/2019 0.5% the right eye M.D. Solution three times a day, start the day before surgery Prednisolone Acetate 1 drops right eye 5ml Lupillo Nina, 06/30/2019 1% three times a M.D. Suspension day. taper as directed Jardiance Madhavi Merchant M.D. 10mg Tablets Levothyroxine Sodium Madhavi Merchant M.D. 200mcg Tablets Albuterol Sulfate HFA Unknown 108(90Base) mcg/Act Aerosol Spiriva Respimat Unknown 2.5mcg/Act Aerosol Aspirin 81 1 daily Unknown 81mg Tablets DR Immunizations Description No Information Available Vital Signs Description No Information Available Results Description No Information Available Procedures Date Code Description Status 03/25/2019 23567 Scanning Computerized Opthalmic Diagnostic Posterior Seg Completed Retina 03/25/2019 75540 New Patient Comprehensive Exam Completed Medical Devices Description No Information Available Encounters Description No Information Available Assessments Date Code Description Provider 06/30/2019 H25.811 Combined forms of age-related cataract, Lupillo Nina M.D. right eye 06/30/2019 E11.3293 Type 2 diabetes mellitus with mild Lupillo Nina M.D. nonproliferative diabetic retinopathy without macular edema, bilateral 06/30/2019 H25.812 Combined forms of age-related cataract, Lupillo Nina M.D. left eye 03/25/2019 E11.3293 Type 2 diabetes mellitus with mild Lupillo Nina M.D. nonproliferative diabetic retinopathy without macular edema, bilateral 03/25/2019 H25.813 Combined forms of age-related cataract, Lupillo Nina M.D. bilateral Plan of Treatment Future Appointment(s):08/05/2019 11:30 am - Lupillo Nina M.D. at [facility], 07/17/2019 11:15 am - Lupillo Nina M.D. at [facility], 07/10/2019 11:00 am - Lupillo Nina M.D. at [facility], 2019 7:00 am - Lupillo Nina M.D. at [facility], 07/09/2019 7:00 am - Lupillo Nina M.D. at [facility], 06/30/2019 - Lupillo Nnia M.D.H25.811 Combined forms of age-related cataract, right eyeComments:Smoking can increase the risk of developing or worsening any eye related disease, as well as affect your overall health. If you are a smoker, we strongly recommend that you quit.If you are not a smoker, we strongly recommend that you do not start. Dense cataract in the right eye.Follow up:For surgery. Please keep post op appointments as scheduled.DFE/IOPE11.3293 Type 2 diabetes mellitus with mild nonproliferative diabetic retinopathy without macular edema, nwsomfidiQ94.812 Combined forms of age-related cataract, left eye Functional Status Description No Information Available Mental Status Description No Information Available Referrals Description No Information Available
--- OUTSIDE RECORDS SUMMARY | 2019-07-12 11:53 | XMS REPORT | Continuity of Care Document ---
:1960 External Reference #:[id number] Author Name Lupillo Nina M.D. Address [address] [place] [address] Care Team Providers Name Role Phone Kay Ellis M.D. - Family Medicine Care Team Information Labor Relations Consultant Madhavi Merchant M.D. - Endocrinology, Care Team Information Labor Relations Consultant [phone] Diabetes & Metabolism Problems Active Problems Provider [...] Use Denies Drug Use Smoking Status Reviewed: 07/10/19 Heavy tobacco smoker (more than 10 cigarettes/day) Allergies, Adverse Reactions, Alerts Active Allergies Reaction Severity Comments Date Codeine 03/25/2019 Penicillin 03/25/2019 Fentanyl 03/25/2019 Medications Active Medications SIG Qnty Indications Ordering Provider Date Artificial Tears Lupillo Nina, 07/10/2019 1-0.3% M.D. Solution Ciprofloxacin HCL instill one drop 5ml Lupillo [...] Aspirin 81 1 daily Unknown 81mg Tablets Immunizations Description No Information Available Vital Signs Description No Information Available Results Description No Information Available Procedures Date Code Description Status 07/09/2019 49162 Extracapsular Cataract Extraction W/Intraocular Lens Completed 06/30/2019 05633 Ophthalmic Biometry Completed 06/30/2019 77480 Ophthalmic Biometry Completed 06/30/2019 88072 Est Patient Intermediate Exam Completed 03/25/2019 39757 Scanning Computerized Opthalmic Diagnostic Posterior Seg Completed Retina 03/25/2019 26833 New Patient Comprehensive Exam Completed Medical Devices Description No Information Available Encounters Description No Information Available Assessments Date Code Description Provider 07/10/2019 H25.812 Combined forms of age-related cataract, Lupillo Nina M.D. left eye 07/10/2019 E11.3293 Type 2 diabetes mellitus with mild Lupillo Nina M.D. nonproliferative diabetic retinopathy without macular edema, bilateral 07/10/2019 Z96.1 Presence of intraocular lens Lupillo Nina M.D. 07/09/2019 H25.811 Combined forms of age-related cataract, Lupillo Nina M.D. right eye 06/30/2019 H25.811 Combined forms of age-related cataract, [...] Lupillo Nina M.D. at [facility], 07/16/2019 7:00 am - Lupillo Nina M.D. at [facility], 2019 - Lupillo Nina M.D.H25.812 Combined forms of age-related cataract, left eyeComments:Smoking can increase the risk of developing or worsening any eye related disease, as well as affect your overall health. If you are a smoker , we strongly recommend that you quit.If you are not a smoker, we strongly recommend that you do not start. Dense cataract in the left eye.Follow up:For surgery. Please keep post op appointments as scheduled.E11.3293 Type 2 diabetes mellitus with mild nonproliferative diabetic retinopathy without macular edema, ouatqpojzX87.1 Presence of intraocular lensComments:The artifical lens implant in your right eye appears to be stable. Since this is the first day after surgery, your right eye is still dilated and the vision will still be slightly blurry. The dilation will go down over the next day or two. Continue taking your eye drops as directed on the surgical calendar. If you have any questions , please call our office. Functional Status Description No Information Available Mental Status Description No Information Available Referrals Description No Information Available
--- OUTSIDE RECORDS SUMMARY | 2019-07-12 11:53 | XMS REPORT | Continuity of Care Document ---
:1960 External Reference #:[id number] Author Name Moe Bass DO FAC (transmitted by agent of provider Rachel Mccord) Address [address] [place] [address] Care Team Providers Name Role Phone Judson Garcia MD - Physical Care Team Information Systems Project Manager [phone] Medicine & Rehabilitation Steven Patricia MD - Interventional Care Team Information Systems Project Manager [phone] Pain Medicine Tom Jenkins MD - Endocrinology, Care Team Information Systems Project Manager Diabetes & Metabolism Gagandeep Bridges DO - Interventional Care Team Information Systems Project Manager Pain Medicine Radha Jc MD - Internal Care Team Information Systems Project Manager [phone] Medicine Kay Ellis M.D. - Internal Medicine Care Team Information Systems Project Manager Problems Active Problems Provider Date Chest pain Mary Zayas MD Onset: 03/22/2010 Generalized abdominal pain Mary Zayas MD Onset: 03/22/2010 Type II diabetes mellitus uncontrolled Mary Zayas MD Onset: 2009 Thyroid function tests abnormal Radha Jc M.D. Onset: 03/22/2010 Chronic obstructive lung disease Radha Jc M.D. Onset: 03/22/2010 Low back pain Radha Jc M.D. Onset: 03/22/2010 Ex-smoker Funmi Rangel M.D. Onset: 03/22/2010 Psychologic conversion disorder Radha Jc M.D. Onset: 03/22/2010 Degeneration of lumbar intervertebral Mark Lockhart M.D. Onset: 04/11/2011 disc Cellulitis Markie Garzon M.D. Onset: 04/10/2011 Acute bronchitis Markie Garzon M.D. Onset: 04/10/2011 Hyperlipidemia Markie Garzon M.D. Onset: 04/10/2011 Disorder of lumbar disc Markie Garzon M.D. Onset: 05/02/2011 Dysphagia Markie Garzon M.D. Onset: 05/24/2011 Pain in limb Markie Garzon M.D. Onset: 06/26/2011 Benign essential hypertension Markie Garzon M.D. Onset: 08/23/2011 Recurrent major depressive episodes Markie Garzon M.D. Onset: 08/23/2011 Gastroesophageal reflux disease Markie Garzon M.D. Onset: 08/23/2011 Tobacco user Markie Garzon M.D. Onset: 08/23/2011 Insomnia Markie Garzon M.D. Onset: 08/23/2011 Neuralgia Neuritis & Radiculitis Markie Garzon M.D. Onset: 08/23/2011 Unspecified Arthralgia of the lower leg Markie Garzon M.D. Onset: 09/27/2011 Anxiety state Markie Garzon M.D. Onset: 01/30/2012 Arthralgia of the ankle and/or foot Markie Garzon M.D. Onset: 07/15/2012 Hand joint pain Markie Garzon M.D. Onset: 07/15/2012 Hypothyroidism Markie Garzon M.D. Onset: 08/07/2012 Migraine without aura, not refractory Markie Garzon M.D. Onset: 2012 Acute pharyngitis Markie Garzon M.D. Onset: 10/08/2012 Allergic rhinitis Markie Garzon M.D. Onset: 11/04/2012 Urticaria due to cold and heat Markie Garzon M.D. Onset: 11/04/2012 Candidiasis of mouth Markie Garzon M.D. Onset: 11/19/2012 Asthma without status asthmaticus Markie Garzon M.D. Onset: 02/24/2013 Chest pain Maximo Edge M.D., [facility], Onset: 04/24/2013 FASNC Multiple joint pain Anthony Veliz M.D. Onset: 04/24/2013 Lumbosacral spondylosis without Anthony Veliz M.D. Onset: 04/24/2013 myelopathy Chronic pain syndrome Anthony Veliz M.D. Onset: 08/08/2013 Idiopathic peripheral neuropathy Anthony Veliz M.D. Onset: 08/08/2013 Thoracic and lumbosacral neuritis Hardy Oscar M.D. Onset: 02/15/2015 Essential hypertension Luz Randall M.D. Onset: 03/24/2015 Other specified symptoms and signs Luz Randall M.D. Onset: 03/24/2015 involving the circulatory and respiratory systems Left side sciatica Mark Lockhart M.D. Onset: 08/12/2015 Localized, primary osteoarthritis of Shyla Junior M.D. Onset: 11/05/2015 the pelvic region and thigh Old myocardial infarction Phillip Medrano MD, [facility], Onset: 08/01/2017 FSCAI Tenosynovitis of hand Mark Lockhart M.D. Onset: 06/26/2018 Anticoagulant therapy OSMIN Meredith Onset: 09/13/2018 Lumbar radiculopathy Mark Lockhart M.D. Onset: 11/27/2018 Social History Type Date Description Comments Sex Unknown Tobacco Use Start: Unknown current cigarette smoker 1/4 pack daily ETOH Use Denies alcohol use Recreational Drug Use Denies Drug Use Tobacco Use Start: Unknown Patient is a current smoker, smokes every day Tobacco Use Start: Unknown Heavy tobacco smoker (more than 10 cigarettes/day) Smoking Status Reviewed: 06/13/19 Heavy tobacco smoker (more than 10 cigarettes/day) Exercise Type/Frequency Does not exercise Allergies, Adverse Reactions, Alerts Active Allergies Reaction Severity Comments Date Penicillins Severe 07/27/2008 Ibuprofen upset stomach 07/27/2008 steroids Contact dermatitis, Burning 09/27/2011 Fentanyl Break out in rash and trouble 08/08/2013 waking up Atorvastatin GI upset 04/30/2018 Simvastatin 05/07/2018 Medications Active Medications SIG Qnty Indications Ordering Date Provider Levo-T 200mcg once daily 30tabs E03.8 Ian Merchant MD 12/06/2018 200mcg Tablets on an empty stomach Ezetimibe take 10mg by mouth 30tabs E78.5 Ian Merchant MD 12/04/2018 10mg daily Tablets Jardiance 10mg by mouth 30tabs Ian Merchant MD 12/04/2018 10mg daily in the Tablets morning Trulicity inject 0.75mg once 2ml E11.69 Ian Merchant MD 12/04/2018 weekly for 1 month 0.75mg/0.5ML Solution Pen-Inject Freestyle Lite Test test blood sugar 4 150units E11.65 Ian Merchant MD times daily and as Strips needed Voltaren apply to affected 200gm Mark Lockhart, 06/26/2018 1% Gel area up to three M.D. times daily on wrist Lidoderm apply to affected 3units Mark Lockhart, 06/26/2018 5% Patches area, leave on for M.D. 12 hours, off for 12 hours. cut to size of area Rosuvastatin Calcium 1 by mouth every 90tabs I25.2 Moe S. 05/07/2018 day Bass, DO FACC 20mg Tablets Clopidogrel 1 by mouth every 90tabs Moe S. 04/30/2018 Bisulfate day Bass, DO FACC 75mg Tablets High Rise Toilet Disp 1 high rise 1units M16.12 Shyla Junior, 02/26/2018 Seat toilet seat ht 64 M.D. wt147 Raised Toilet Seat raised toilet seat 1units M54.42 Mark Lockhart, 2017 M.DKaushik Misc Metoprolol Tartrate 75 mg twice daily 180tabs Moe S. 02/18/2018 Bass, DO FACC 50mg Tablets Ramipril 1 by mouth every 90caps Moe S. 01/21/2018 5mg Capsules day Bass, DO FACC [place] Crutches Degen Lumbar Mark Lockhart, 11/18/2015 One disease M.D. Set Freestyle Lite Blood check fingerstick 1units Ian Merchant MD 03/17/2013 Glucose Monitoring daily System Device Freestyle Lite two times daily or 100units 250.02 Markie 03/17/2013 Lancets as needed Pato Garzon Proair HFA 2 puffs ih q4h prn 2units 496 [place] 08/27/2012 Pato Garzon 108(90Base) mcg/Act Aerosol Contour Blood as directed 1units [place] 08/07/2012 Glucose Monitoring Pato Garzon System w/Device Kit Doxepin HCL 1 at bedtime 30caps Hardy S. 06/04/2012 25mg Pato Perry Capsules Epipen 2-Venkatesh 0.3 mg im in thigh 1units 784.0 [place] 01/06/2011 prn beesting Pato Garzon 0.3mg/0.3ML Device Back Brace With use as directed 1units M51.26 [place] 01/04/2011 Lumbar Support Pato Garzon Humidifier use as directed dx 1units [place] 01/04/2011 Misc 496 Pato Garzon Contour Test Strips tid and prn 100units 250.02 [place] 11/09/2009 Pato Garzon Contour Lancets 1 finger stick tid 120units 794.5 [place] 11/09/2009 and prn Pato Garzon Albuterol Sulfate 1 vial via Unknown nebulizer 4 times (2.5mg/3ML) 0.083% daily as needed Nebulizer Aspirin 1 by mouth every Unknown 81mg Tablets day DR Jackson one sl q5min up to Unknown 0.4mg 3 doses as needed Tablets Sub Basaglar Kwikpen 65 units at 30ml Ian Merchant MD bedtime or as 100Unit/ML Solution directed, mdd 70 Pen-Inject Cetirizine HCL 1 by mouth every Unknown 10mg day Tablets Admelog for use in insulin 30ml Ian Merchant MD 100Unit/ML pump as directed, Solution mdd 80 Fluoxetine HCL 1 by mouth every Unknown 20mg day Capsules Medications Administered in Office Medication SIG Qnty Indications Ordering Provider Date Depomedrol 80MG Mark Lockhart M.D. 08/22/2012 Injection Depomedrol 80MG Mark Lockhart M.D. 09/19/2011 Injection Immunizations CPT Code Status Date Vaccine Lot # [id number] Given 04/25/2011 Influenza Virus 3Yrs & Over [id number] Given 03/22/2010 Influenza Virus 3Yrs & Over [id number] Vital Signs Date Vital Result Comment 06/13/2019 9:46am Height 64 inches 5'4" Weight 138.00 lb without shoes Heart Rate 77 /min BP Systolic Sitting 138 mmHg Ra BP Diastolic Sitting 76 mmHg Ra BP Systolic Standing 132 mmHg Ra BP Diastolic Standing 80 mmHg Ra BMI (Body Mass Index) 23.7 kg/m2 Ejection Fraction 60% Echo 02/19/18 02/12/2019 3:48pm Height 64 inches 5'4" Weight 145.00 lb BP Systolic 112 mmHg BP Diastolic 62 mmHg Pain Level 10 BMI (Body Mass Index) 24.9 kg/m2 Results Description No Information Available Procedures Date Code Description Status 06/13/2019 55516 EKG Tracing & Interpretation Completed 03/25/2019 758411497 Diabetic Retinal Eye Exam Completed 12/16/2012 849850259 Diabetic Retinal Eye Exam Completed 08/15/2012 20331433 Mammogram Completed 08/15/2012 86402974 Colonoscopy Completed 08/17/2009 [id number] Mammogram Completed Medical Devices Description No Information Available Encounters Type Date Location Provider Dx Diagnosis Office Visit 02/12/2019 Neurosurgery [facility] M51.27 Other intervertebral 3:[facility] Mor Richter MD disc displacement, lumbosacral region M51.37 Other intervertebral disc degeneration, lumbosacral region Assessments Date Code Description Provider 06/13/2019 R07.9 Chest pain, unspecified Moe SKaushik Bass, DO [facility] 06/13/2019 I25.2 Old myocardial infarction Moe SKaushik Bass, DO [facility] 06/13/2019 I70.212 Atherosclerosis of ambler arteries of Moe SKaushik Bass, DO [facility] extremities with intermittent claudication, left leg 06/13/2019 Z72.0 Tobacco use Moe SKaushik Bass DO [facility] 06/13/2019 I65.23 Occlusion and stenosis of bilateral Moe SKaushik Bass, DO [facility] carotid arteries 06/13/2019 I70.218 Atherosclerosis of ambler arteries of Moe SKaushik Bass DO [facility] extremities with intermittent claudication, other extremity 06/13/2019 E11.69 Type 2 diabetes mellitus with other Moe Bass DO FACC specified complication 02/12/2019 M51.27 Other intervertebral disc displacement, Maxwell Richter MD lumbosacral region 02/12/2019 M51.37 Other intervertebral disc degeneration, Maxwell Richter MD lumbosacral region Plan of Treatment Future Appointment(s):07/02/2019 10:15 am - Moe Bass DO [facility] at [facility]06/13/2019 - Moe Bass DO FACCR07.9 Chest pain, unspecifiedNew Orders:Stress Test, Pharmacologic Nuclear (Lexiscan), Ordered: Comments:Please call our office with your current medications so we can update our list.Have Dr. Ellis check your cholesterol with next routine blood work and send us a copy of the results.Follow up:f/u 1 yearI25.2 Old myocardial nszlkdbehpM50.212 Atherosclerosis of ambler arteries of extremities with intermittent claudication, left legNew Xrays:VL Ank/Brachial Indices, Ordered: 06/13/19Z72.0 Tobacco useI65.23 Occlusion and stenosis of bilateral carotid arteriesNew Xrays:VL Carotid Bilateral, Ordered: 06/13/19I70.218 Atherosclerosis of ambler arteries of extremities with intermittent claudication , other extremityNew Xrays:VL Upper Ext Art Duplex Left, Ordered: E11.69 Type 2 diabetes mellitus with other specified complication Functional Status Description No Information Available Mental Status Description No Information Available Referrals Refer to Reason for Referral Status Appt Date Judson Garcia MD Sent [address] [place] [address] [phone]
[2019-07-12] MEDS ORDERED: NS 0.9% 1000 ML** 1,000 ML IV ONE (12:01)
[2019-07-12] MEDS ORDERED: Nitroglycerin TAB 0.4 MG* 0.4 MG TAB SL ONE (12:02)
--- NOTE | 2019-07-12 12:06 | ED ---
HPI Chest Pain - HPI Summary HPI Summary: This patient is a 59 year old F presenting to [facility] accompanied by male friend with a chief complaint of CP since 1 hr ago today 07/12/19 when she was sitting. Symptoms aggravated by nothing. Symptoms alleviated by nothing. CC described as heaviness, pressure, and pain radiating to right arm with pain on similar scale to prior heart attacks. Hx heart attack, 2 stents in 2016 and bypass in 2018. Patient reports vomit, swelling in left ankle. Patient denies SOB, abdominal, pain, diarrhea, pain in left calf or in right leg. On Plavix. Reports recent cataracts surgery. - History of Current Complaint Chief Complaint: EDChestPainROMI Time Seen by Provider: 07/12/19 11:51 Hx Obtained From: Patient Onset/Duration: Started Hours Ago - 1, Still Present Current Severity: Severe Pain Intensity: 10 Pain Scale Used: 0-10 Numeric Chest Pain Radiates: Yes Chest Pain Radiates To:: Arm Character: Heaviness, Pressure/Squeezing Aggravating Factor(s): Nothing Alleviating Factor(s): Nothing Associated Signs and Symptoms: Positive: Swelling - left ankle, Vomiting, Other : - denies diarrhea, pain in left calf or right leg. Negative: Abdominal Pain - Additional Pertinent History Primary Care Physician: [id number] - Allergy/Home Medications Allergies/Adverse Reactions: Allergies Allergy/AdvReac Type Severity Reaction Status Date / Time Corticosteroids Allergy Rash Verified 07/12/19 11:49 (Glucocorticoids) fentanyl Allergy Difficulty Verified 07/12/19 11:49 Breathing penicillin G Allergy Difficulty Verified 07/12/19 11:49 Breathing PMH/Surg Hx/FS Hx/Imm Hx Endocrine/Hematology History: Reports: Hx Diabetes, Hx Thyroid Disease Cardiovascular History: Reports: Hx Angina, Hx Coronary Artery Disease, Hx Hypercholesterolemia, Hx Hypertension, Hx Myocardial Infarction, Other Cardiovascular Problems/Disorders - PERICARDITIS Denies: Hx Angioplasty, Hx Congestive Heart Failure, Hx Pacemaker/ICD, Hx Peripheral Vascular Disease, Hx Valvular Heart Disease Respiratory History: Reports: Hx Asthma, Hx Chronic Obstructive Pulmonary Disease (COPD), Hx Seasonal Allergies - cut grass, mold, fungus, Other Respiratory Problems/Disorders - smoker Denies: Hx Sleep Apnea GI History: Reports: Hx Gall Bladder Disease - Removed 1999, Hx Gastroesophageal Reflux Disease Denies: Hx Ulcer History: Reports: Hx Kidney Stones Denies: Hx Renal Disease Musculoskeletal History: Reports: Hx Arthritis, Hx Back Problems, Hx Scoliosis Sensory History: Reports: Hx Contacts or Glasses, Hx Deafness, Hx Hearing Aid - WON'T WEAR, Hx Hearing Problem Denies: Hx Cataracts, Other Sensory Impairments Opthamlomology History: Reports: Hx Contacts or Glasses Denies: Hx Cataracts, Other Sensory Impairments Neurological History: Reports: Hx Migraine Denies: Hx Seizures, Hx Transient Ischemic Attacks (TIA) Psychiatric History: Reports: Hx Anxiety, Hx Depression, Hx Panic Disorder, Hx Bipolar Disorder, Hx of Violent Episodes Against Others Denies: Hx Eating Disorder - Surgical History Surgery Procedure, Year, and Place: 2010 Total Hysterectomy. 1999 Gall bladder removed. 2000 Tubal. A CHILD EAR SURGERY X 3 NO IMPLANTS. 10/20/15 -3 SYNERGY HEART STENTS @[facility] IN NORMAL MODE-1.5 OR 3T UP TO 2300G/CM. OPEN HEART SURGERY 02/19/18 WITH BYPASS Hx Anesthesia Reactions: No Infectious Disease History: No Infectious Disease History: Reports: Hx Shingles - age 11 years Denies: Hx Hepatitis, Hx Human Immunodeficiency Virus (HIV), Hx Tuberculosis , Traveled Outside the [place] in Last 30 Days - Family History Known Family History: Positive: Cardiac Disease, Hypertension, Diabetes - Social History Alcohol Use: None Alcohol Amount: Reported ETOh use Hx Substance Use: No Substance Use Type: Reports: None Hx Tobacco Use: Yes Smoking Status (MU): Current Every Day Smoker Type: Cigarettes Amount Used/How Often: 5 per day Have You Smoked in the Last Year: Yes Review of Systems Positive: Chest Pain Negative: Shortness Of Breath Positive: Vomiting. Negative: Abdominal Pain, Diarrhea Positive: Edema - swelling in left ankle, Other - right arm pain; denies pain in left calf or in right leg All Other Systems Reviewed And Are Negative: Yes Physical Exam - Summary Physical Exam Summary: Constitutional: Well-developed, Well-nourished, Alert. (-) Distressed Skin: Warm, Dry HENT: Normocephalic; Atraumatic Eyes: wearing sunglasses (recent cataract surgery) Neck: Musculoskeletal ROM normal neck. (-) JVD, (-) Stridor, (-) Tracheal deviation Cardio: Rhythm regular, rate normal, Heart sounds normal; Intact distal pulses; The pedal pulses are 2+ and symmetric. Radial pulses are 2+ and symmetric. (-) Murmur Pulmonary/Chest wall: Effort normal. (-) Respiratory distress, (-) Wheezes, (-) Rales Abd: Soft, (-) tenderness, (-) Distension, (-) Guarding, (-) Rebound Musculoskeletal: (-) Edema Lymph: (-) Cervical adenopathy Neuro: Alert, Oriented x3 Psych: Mood and affect Normal Triage Information Reviewed: Yes Vital Signs On Initial Exam: Initial Vitals Temp Pulse Resp BP Pulse Ox 97.7 F 70 18 0/0 99 07/12/19 11:47 07/12/19 11:47 07/12/19 11:47 07/12/19 11:47 07/12/19 11:47 Vital Signs Reviewed: Yes Procedures - Sedation Patient Received Moderate/Deep Sedation with Procedure: No Diagnostics - Vital Signs Vital Signs Temp Pulse Resp BP Pulse Ox 07/12/19 11:47 97.7 F 70 18 0/0 99 - Laboratory Result Diagrams: 07/12/19 12:22 07/12/19 12:21 Lab Statement: Any lab studies that have been ordered have been reviewed, and results considered in the medical decision making process. - Radiology Chest X-Ray Radiology Interpretation Completed By: Radiologist Summary of Radiographic Findings: Per radiologist,. NO ACTIVE CARDIOPULMONARY DISEASE. ED physician has reviewed this imaging report. - EKG 1146 Cardiac Rate: NL - 68 BPM Summary of EKG Findings: An EKG taken at 1146 reveals normal sinus rhythm at 68 bpm with no ischemic changes. Dr. Parks has reviewed and interpreted this EKG. Re-Evaluation - Re-Evaluation First Eval Re-Evaluation Time: 14:30 Comment: checking in on patient. Chest Pain Course/Dx - Course Course Of Treatment: This patient is a 59 year old F presenting to [facility] accompanied by male friend with a chief complaint of CP since 1 hr ago today when she was sitting. CC described as heaviness, pressure, and pain radiating to right arm with pain on similar scale to prior heart attacks. Hx heart attack, 2 stents in 2016 and bypass in 2018. Patient reports vomit, swelling in left ankle. Patient denies SOB, abdominal, pain, diarrhea, pain in left calf or in right leg. Physical Exam Findings reveal no abnormalities except for wearing sunglasses (recent cataract surgery). An EKG taken at 1146 reveals normal sinus rhythm at 68 bpm with no ischemic changes. CXR reveals NO ACTIVE CARDIOPULMONARY DISEASE. Test results with no significant abnormalities expect for RBC 4.94 H, Glucose 231 H, Alkaline Phosphatase 120 H. In the ED course the patient was given saline, nitroglycerin 0.4 mg. Patient will be discharged with [facility] and follow up from Dr. Ellis within 2 days. The patient is agreeable with this plan. - Diagnoses Provider Diagnoses: Chest pain Discharge ED - Sign-Out/Discharge Documenting (check all that apply): Patient Departure - discharge - Discharge Plan Condition: Stable Disposition: HOME Patient Education Materials: Chest Pain (ED) Referrals: Kay Ellis MD [Primary Care Provider] - 2 Days Additional Instructions: Follow up with primary care provider on Sunday07/14/19. - Billing Disposition and Condition Condition: STABLE Disposition: Home - Attestation Statements Document Initiated by Jah: Yes Documenting Scribe: Steffanie Mckinley Provider For Whom Jah is Documenting (Include Credential): Dr. Demar Parks D.O. Scribe Attestation: Steffanie Diaz scribed for Dr. Demar Parks D.O. on 07/12/19 at 1746. Scribe Documentation Reviewed: Yes Provider Attestation: The documentation as recorded by the Steffanie grover accurately reflects the service I personally performed and the decisions made by , Dr. Demar Parks D.O. Status of Scribe Document: Viewed
[2019-07-12 12:29] LABS: ABS Basophils 0.1 10^3/ul (0-0.2); ABS Eosinophils 0.2 10^3/ul (0-0.6); ABS Lymphocytes 2.4 10^3/ul (1.0-4.8); ABS Monocytes 0.6 10^3/ul (0-0.8); ABS Neutrophils 6.8 10^3/ul (1.5-7.7); Eosinophil % 2.3 %; Hematocrit 43 % (35-47); Hemoglobin 14.6 g/dL (12.0-16.0); Lymphocyte % 23.9 %; Mean Corpuscular HGB Conc 34 g/dL (31-36); Mean Corpuscular Hemoglobin 30 pg (27-31); Mean Corpuscular Volume 86 fL (80-97); Mean Platelet Volume 8.5 fL (7.4-10.4); Platelet Count 225 10^3/uL (150-450); Red Blood Count 4.94 10^6 /uL (3.70-4.87); Red Cell Distribution Width 14 % (10-15); White Blood Count 10.1 10^3/uL (3.5-10.8)
[2019-07-12 12:35] LABS: INR 0.99 (0.82-1.09)
[2019-07-12 12:52] LABS: Albumin 3.4 g/dL (3.2-5.2); Calcium 8.8 mg/dL (8.6-10.3); EGFR African American 76.1 (>60); EGFR Non-African American 62.9 (>60); Globulin 3.3 g/dL (2-4); Total Bilirubin 0.3 mg/dL (0.2-1.0); Total Protein 6.7 g/dL (6.4-8.9)
[2019-07-12 12:55] LABS: Troponin I 0.01 ng/mL (<0.03)
[2019-07-12 15:50] VITALS: BP 156/89
== END 2019-07-12 15:46 | disposition home or self-care (01) ==
LOC: ED 11:44
DX: R07.9 Chest pain, unspecified (principal); I25.2 Old myocardial infarction; E11.9 Type 2 diabetes mellitus without complications; E07.9 Disorder of thyroid, unspecified; I25.10 Atherosclerotic heart disease of native coronary artery without angina pectoris; E78.00 Pure hypercholesterolemia, unspecified; I10 Essential (primary) hypertension; J44.9 Chronic obstructive pulmonary disease, unspecified; K21.9 Gastro-esophageal reflux disease without esophagitis; F41.9 Anxiety disorder, unspecified; F31.9 Bipolar disorder, unspecified; F17.210 Nicotine dependence, cigarettes, uncomplicated; Z95.5 Presence of coronary angioplasty implant and graft; Z95.1 Presence of aortocoronary bypass graft; Z90.710 Acquired absence of both cervix and uterus; Z90.49 Acquired absence of other specified parts of digestive tract; Z98.51 Tubal ligation status; Z88.0 Allergy status to penicillin; Z88.5 Allergy status to narcotic agent; Z88.8 Allergy status to other drugs, medicaments and biological substances
CPT/HCPCS: 36415; 71045; 80053; 84484; 85025; 85610; 93005; 96360; 96361; 99283; A9270-GY

== ENCOUNTER 2020-01-17 14:45 | Inpatient (IN) ==
[2020-01-17 15:42] LABS: ABS Basophils 0.1 10^3/ul (0-0.2); ABS Eosinophils 0.1 10^3/ul (0-0.6); ABS Lymphocytes 2.2 10^3/ul (1.0-4.8); ABS Monocytes 0.4 10^3/ul (0-0.8); ABS Neutrophils 4.5 10^3/ul (1.5-7.7); Eosinophil % 1.8 %; Hematocrit 44 % (35-47); Hemoglobin 15.4 g/dL (12.0-16.0); Lymphocyte % 30.1 %; Mean Corpuscular HGB Conc 35 g/dL (31-36); Mean Corpuscular Hemoglobin 30 pg (27-31); Mean Corpuscular Volume 85 fL (80-97); Mean Platelet Volume 8.8 fL (7.4-10.4); Platelet Count 211 10^3/uL (150-450); Red Blood Count 5.18 10^6 /uL (3.70-4.87); Red Cell Distribution Width 13 % (10-15); White Blood Count 7.3 10^3/uL (3.5-10.8)
[2020-01-17 16:10] LABS: ALT 9 U/L (7-52); AST 24 U/L (13-39); Albumin 3.9 g/dL (3.2-5.2); Albumin/Globulin Ratio 1.3 (1-3); Alkaline Phosphatase 100 U/L (34-104); Anion Gap 5 mmol/L (2-11); BUN/Creatinine Ratio 9.4 (8-20); Blood Urea Nitrogen 9 mg/dL (6-24); CO2 Carbon Dioxide 30 mmol/L (22-32); Calcium 9.3 mg/dL (8.6-10.3); Chloride 98 mmol/L (101-111); EGFR African American 72.2 (>60); EGFR Non-African American 59.7 (>60); Globulin 3.1 g/dL (2-4); Glucose 362 mg/dL (70-100); Potassium 3.7 mmol/L (3.5-5.0); Sodium 133 mmol/L (135-145)
[2020-01-17 16:13] LABS: Troponin I 0.24 ng/mL (<0.03)
[2020-01-17] MEDS ORDERED: Heparin DRIP 25,000 UNITS BAG 25,000 UNITS/500 ML BAG IV SCH (16:30)
[2020-01-17] MEDS: nitroGLYCERIN DRIP 25,000 MCG/250 ML BTL IV ONE (16:42)
[2020-01-17] MEDS ORDERED: Al Hydrox/Mg Hydrox/Simet LIQ 30 ML UDC PO PRN (17:16)
[2020-01-17] MEDS ORDERED: Morphine 2 MG/ML SYRINGE IV PRN (17:16)
[2020-01-17] MEDS ORDERED: Dextrose 50% Syringe 50 ml 25 GM/50 ML SYRINGE IV PUSH PRN (17:34)
[2020-01-17] MEDS ORDERED: NF:IPRATROPIUM BR (NF)0.03% NASAL 1 SPRAY BTL BOTH NARES PRN (17:37)
[2020-01-17] MEDS ORDERED: Fluticasone NASAL SPRAY 50MCG 16 gm SPRAY BTL BOTH NARES PRN (17:37)
[2020-01-17] MEDS ORDERED: Albuterol HFA INHALER 8 gm MDI INH PRN (17:37)
[2020-01-17] MEDS ORDERED: Insulin GLARGINE 100 un/ml 10 ml VIAL SUBCUT SCH (18:00)
[2020-01-17 18:26] LABS: Troponin I 0.56 ng/mL (<0.03)
[2020-01-17 21:31] LABS: Troponin I 1.72 ng/mL (<0.03)
[2020-01-17] MEDS: Insulin GLARGINE 100 un/ml 10 ml VIAL SUBCUT SCH (22:25)
[2020-01-18 00:42] LABS: Troponin I 3.97 ng/mL (<0.03)
[2020-01-18] MEDS: Heparin 5000 UNITS/ML 1 mL VIAL IV SCH ×2 (03:30→16:48)
[2020-01-18] MEDS ORDERED: nitroGLYCERIN DRIP 25,000 MCG/250 ML BTL ONE (03:55)
[2020-01-18] MEDS: nitroGLYCERIN DRIP 25,000 MCG/250 ML BTL IV ONE (06:33)
[2020-01-18 07:05] LABS: ABS Basophils 0.1 10^3/ul (0-0.2); ABS Eosinophils 0.2 10^3/ul (0-0.6); ABS Lymphocytes 2.7 10^3/ul (1.0-4.8); ABS Monocytes 0.4 10^3/ul (0-0.8); ABS Neutrophils 7.7 10^3/ul (1.5-7.7); Eosinophil % 2.1 %; Hematocrit 40 % (35-47); Hemoglobin 14.1 g/dL (12.0-16.0); Lymphocyte % 23.9 %; Mean Corpuscular HGB Conc 35 g/dL (31-36); Mean Corpuscular Hemoglobin 30 pg (27-31); Mean Corpuscular Volume 85 fL (80-97); Mean Platelet Volume 8.9 fL (7.4-10.4); Platelet Count 206 10^3/uL (150-450); Red Blood Count 4.77 10^6 /uL (3.70-4.87); Red Cell Distribution Width 13 % (10-15); White Blood Count 11.1 10^3/uL (3.5-10.8)
[2020-01-18 07:28] LABS: ALT 9 U/L (7-52); AST 55 U/L (13-39); Albumin 3.4 g/dL (3.2-5.2); Albumin/Globulin Ratio 1.2 (1-3); Alkaline Phosphatase 92 U/L (34-104); Anion Gap 6 mmol/L (2-11); BUN/Creatinine Ratio 8.4 (8-20); Blood Urea Nitrogen 7 mg/dL (6-24); CO2 Carbon Dioxide 30 mmol/L (22-32); Calcium 8.6 mg/dL (8.6-10.3); Chloride 98 mmol/L (101-111); Cholesterol 258 mg/dL; EGFR African American 85.4 (>60); EGFR Non-African American 70.6 (>60); Globulin 2.9 g/dL (2-4); Glucose 273 mg/dL (70-100); HDL Cholesterol 37.5 mg/dL; LDL Cholesterol 187 mg/dL; Magnesium 1.8 mg/dL (1.9-2.7); Phosphorus 3.3 mg/dL (2.5-5.0); Potassium 3.7 mmol/L (3.5-5.0); Sodium 134 mmol/L (135-145); Total Protein 6.3 g/dL (6.4-8.9); Triglycerides 167 mg/dL
[2020-01-18] MEDS ORDERED: Perflutren Lipid Microsphere 3 ML VIAL ONE (08:00)
[2020-01-18] MEDS: Aspirin EC 81 mg TAB.EC (enteric coated) PO SCH (08:48)
[2020-01-18] MEDS: EMPAGLIFLOZIN 25 MG PO SCH (12:50)
[2020-01-18 16:05] LABS: Troponin I 7.24 ng/mL (<0.03)
[2020-01-18] MEDS: Insulin GLARGINE 100 un/ml 10 ml VIAL SUBCUT SCH (20:19)
[2020-01-18] MEDS: NS 0.9% 1000 ml BAG 1,000 ML IV SCH (23:09)
[2020-01-18] MEDS ORDERED: Heparin DRIP 25,000 UNITS BAG 25,000 UNITS/500 ML BAG IV SCH (23:45)
[2020-01-19 05:05] LABS: ABS Basophils 0.1 10^3/ul (0-0.2); ABS Eosinophils 0.2 10^3/ul (0-0.6); ABS Lymphocytes 3.7 10^3/ul (1.0-4.8); ABS Monocytes 0.6 10^3/ul (0-0.8); ABS Neutrophils 5.8 10^3/ul (1.5-7.7); Eosinophil % 1.9 %; Hematocrit 41 % (35-47); Hemoglobin 14.3 g/dL (12.0-16.0); Lymphocyte % 35.5 %; Mean Corpuscular HGB Conc 35 g/dL (31-36); Mean Corpuscular Hemoglobin 30 pg (27-31); Mean Corpuscular Volume 85 fL (80-97); Mean Platelet Volume 8.7 fL (7.4-10.4); Platelet Count 200 10^3/uL (150-450); Red Blood Count 4.79 10^6 /uL (3.70-4.87); Red Cell Distribution Width 13 % (10-15); White Blood Count 10.4 10^3/uL (3.5-10.8)
[2020-01-19 05:19] LABS: EGFR African American 73.1 (>60); EGFR Non-African American 60.4 (>60)
[2020-01-19] MEDS: EMPAGLIFLOZIN 25 MG PO SCH (07:59)
[2020-01-19] MEDS: Aspirin EC 81 mg TAB.EC (enteric coated) PO SCH (07:59)
[2020-01-19] MEDS ORDERED: diPHENhydraMINE 25 mg TAB PO PRN (08:00)
[2020-01-19] MEDS ORDERED: Lidocaine 1% VIAL 10 MG/ML VIAL ONE (08:22)
[2020-01-19] MEDS ORDERED: Heparin 2 UNITS/ML 1000 mls 2,000 ML IV ONE (08:22)
[2020-01-19] MEDS ORDERED: Iodixanol 320 (CONTRAST) 100 ML SDV ONE (08:22)
[2020-01-19] MEDS ORDERED: Midazolam 5 mg/5 ml VIAL 1 mg/ml 5 ml VIAL (5 mg) ONE (08:34)
[2020-01-19] MEDS ORDERED: Heparin 1,000 UNIT/ML 10 ml (10,000 UNITS) CATHLAB/DIALYSIS IV ONE (08:34)
[2020-01-19] MEDS: NS 0.9% 1000 ml BAG 1,000 ML IV SCH (12:12)
[2020-01-19 14:02] VITALS: BP 123/69
== END 2020-01-19 15:05 | disposition home or self-care (01) | DRG 190 ==
LOC: ED 14:45 → ICU 17:16
PROVIDERS: ADMIT Internal Medicine; ATTEND Internal Medicine

== ENCOUNTER 2024-04-30 12:38 | Observation (INO) ==
[2024-04-30 13:10] LABS: ABS Basophils 0.1 10^3/uL (0.0-0.1); ABS Eosinophils 0.3 10^3/uL (0.0-0.5); ABS Lymphocytes 1.7 10^3/uL (1.0-4.8); ABS Monocytes 0.5 10^3/uL (0.0-0.9); ABS Neutrophils 6.7 10^3/uL (1.5-7.6); Eosinophil % 2.8 %; Hematocrit 42.9 % (35-45); Hemoglobin 14.9 g/dL (11.5-14.3); Lymphocyte % 18.6 %; Mean Corpuscular Hemoglobin 29.2 pg (27-33); Mean Corpuscular Hgb Conc 34.7 g/dL (31-36); Mean Corpuscular Volume 84.2 fL (80-97); Mean Platelet Volume 9.2 fL (7.5-11.2); Platelet Count 200 10^3/uL (150-450); Red Cell Distribution Width 15.4 % (12-17); White Blood Count 9.2 10^3/uL (3.8-11.8)
[2024-04-30 13:18] LABS: INR 1.02 (0.85-1.14)
[2024-04-30 13:50] LABS: Albumin 3.5 g/dL (3.2-5.2); Albumin/Globulin Ratio 1.2 (1-3); Creatinine, Serum 1.28 mg/dL (0.51-0.95); Globulin 2.9 g/dL (2-4); Potassium 3.8 mmol/L (3.5-5.0); Total Bilirubin 0.3 mg/dL (0.2-1.0); Total Protein 6.4 g/dL (6.4-8.9); eGFR CKD-EPI 47.4 (>60)
[2024-04-30] MEDS: Albuterol/Ipratropium NEB.SOL (2.5/0.5 MG) 3 ML NEB.SOLN INH ONE (14:34)
[2024-04-30 14:42] LABS: High Sensitivity Troponin 1 Hr 218 pg/mL (<15)
[2024-04-30] MEDS: Dexamethasone IV 4 MG/ML VIAL 1 ml VIAL IV SLOW PU ONE (14:44)
[2024-04-30 16:28] LABS: Creatinine, Serum 1.12 mg/dL (0.51-0.95); eGFR CKD-EPI 55.6 (>60)
[2024-04-30] MEDS: Heparin DRIP 25,000 UNITS BAG 25,000 UNITS/250 ML BAG IV SCH ×2 (16:36→16:48)
[2024-04-30] MEDS: Heparin 5000 UNITS/ML 1 mL VIAL IV SCH (16:45)
[2024-04-30] MEDS ORDERED: Sulfur Hexaflouride MICROSPHR 25 MG VIAL IV PRN (17:02)
[2024-04-30] MEDS ORDERED: Albuterol HFA INHALER 8 gm MDI INH PRN (17:34)
[2024-04-30] MEDS ORDERED: Dextrose 50% Syringe 50 ml 25 GM/50 ML SYRINGE IV PUSH PRN (19:34)
[2024-04-30] MEDS ORDERED: Nicotine GUM 2MG FRUIT FLAVOR PO PRN (19:35)
[2024-04-30] MEDS ORDERED: Insulin GLARGINE 100 un/ml 10 ml VIAL SUBCUT SCH (21:00)
[2024-04-30 21:29] VITALS: BP 144/79
[2024-04-30] MEDS: Insulin GLARGINE 100 un/ml 10 ml VIAL SUBCUT SCH (22:25)
[2024-04-30] MEDS: Doxepin 25 mg CAP (NF) PO SCH (22:26)
[2024-05-01] MEDS ORDERED: Insulin GLARGINE 100 un/ml 10 ml VIAL SUBCUT SCH (09:00)
[2024-05-01] MEDS ORDERED: PRAVASTATIN 10 MG PO SCH (09:00)
[2024-05-01] MEDS ORDERED: Empagliflozin 25 MG TAB PO SCH (09:00)
[2024-05-01] MEDS ORDERED: Aspirin EC 81 mg TAB.EC (enteric coated) PO SCH (09:00)
== END 2024-04-30 22:45 | disposition left against medical advice (07) ==
LOC: ED 12:38 → EDHOLD 12:38 → MEDTELE 17:30
PROVIDERS: ADMIT Internal Medicine; ATTEND Internal Medicine